=== PATIENT | male | born 1955 | race American Indian/Alaskan Native ===

== ENCOUNTER 2021-04-30 13:50 | Emergency (ER) | payer MEDICARE ==
[2021-04-30 14:26] VITALS: BP 110/72
--- NOTE | 2021-04-30 14:40 | Emergency Department Report ---
ED Abdominal Pain HPI - General Chief Complaint: Abdominal Pain Stated Complaint: URINARY RETENTION Time Seen by Provider: 04/30/21 14:39 Source: patient Mode of arrival: Ambulatory Limitations: No Limitations - History of Present Illness Initial Comments: Patient presents because he states he cannot pee. He started this this morning. He got up this morning and felt as though he needed to urinate. He has been having a difficult time. He states he just feels like he cannot urinate. He has had no flank pain. There is no back pain. He does report having some suprapubic discomfort. He was recently seen here and diagnosed with a kidney stone. He was told that the stone was moving. He does not know if this is because the stone is causing a blockage or not. He has never had this happen before. - Related Data Home Medications Medication Instructions Recorded Confirmed Last Taken Aspirin [[place] Aspirin EC] 81 mg PO DAILY 04/21/21 04/21/21 Unknown Tamsulosin [Flomax] 0.4 mg PO QDAY 04/21/21 04/21/21 Unknown Previous Rx's Medication Instructions Recorded Last Taken Type Phenazopyridine [Pyridium] 200 mg PO TID #9 tab 04/30/21 Unknown Rx Allergies Allergy/AdvReac Type Severity Reaction Status Date / Time No Known Allergies Allergy Verified 04/21/21 14:28 ED Review of Systems ROS: Stated complaint: URINARY RETENTION Other details as noted in HPI Comment: All other systems reviewed and negative Constitutional: denies: fever Eyes: denies: eye pain ENT: denies: throat pain Respiratory: denies: cough Cardiovascular: denies: chest pain Endocrine: denies: unexplained weight loss Gastrointestinal: as per HPI Genitourinary: as per HPI Musculoskeletal: denies: back pain Skin: denies: rash Neurological: denies: headache Hematological/Lymphatic: denies: easy bruising ED Past Medical Hx - Past Medical History Previous Medical History?: Yes Hx Kidney Stones: Yes Hx HIV: No - Surgical History Past Surgical History?: No - Family History Family history: no significant - Social History Smoking Status: Never Smoker - Medications Home Medications: Home Medications Medication Instructions Recorded Confirmed Last Taken Type Aspirin [[place] Aspirin EC] 81 mg PO DAILY 04/21/21 04/21/21 Unknown History Tamsulosin [Flomax] 0.4 mg PO QDAY 04/21/21 04/21/21 Unknown History Phenazopyridine [Pyridium] 200 mg PO TID #9 tab 04/30/21 Unknown Rx ED Physical Exam - General Limitations: No Limitations, Other (Pulse ox noted and normal) General appearance: alert, in no apparent distress, other (Uncomfortable) - Head Head exam: Present: atraumatic, normocephalic - Eye Eye exam: Present: normal appearance, EOMI - ENT ENT exam: Present: normal orophraynx, normal external ear exam - Neck Neck exam: Present: normal inspection. Absent: meningismus - Respiratory Respiratory exam: Present: normal lung sounds bilaterally. Absent: respiratory distress - Cardiovascular Cardiovascular Exam: Present: regular rate, normal rhythm - GI/Abdominal GI/Abdominal exam: Present: soft. Absent: distended - Extremities Exam Extremities exam: Present: normal capillary refill - Back Exam Back exam: Absent: CVA tenderness (R), CVA tenderness (L) - Neurological Exam Neurological exam: Present: alert, oriented X3, CN II-XII intact, normal gait. Absent: motor sensory deficit - Psychiatric Psychiatric exam: Present: normal affect, normal mood - Skin Skin exam: Present: warm, dry ED Course Vital Signs 04/30/21 14:23 Temperature 98.0 F Pulse Rate 54 L Respiratory 15 Rate Blood Pressure 110/72 O2 Sat by Pulse 100 Oximetry - Reevaluation(s) Reevaluation #1: 04/30/21 14:39 Bladder scan ordered Reevaluation #2: 04/30/21 15:25 Bladder scan was noted. He is not in urinary retention. UA has been ordered. Reevaluation #3: 04/30/21 16:38 Bladder scan and UA were noted. Patient was discharged. ED Medical Decision Making - Medical Decision Making Patient has urinary urgency related to passage of a ureteral stone. He does not have urinary retention. There is no evidence of urinary tract infection. Patient does not appear to have pyelonephritis. He does not appear to be septic or toxic. He was treated symptomatically at this time. There is no evidence of pyelonephritis. I am not concerned for high-grade obstruction. Critical Care Time: No Critical care attestation.: If time is entered above; I have spent that time in minutes in the direct care of this critically ill patient, excluding procedure time. ED Disposition Clinical Impression: Urinary urgency Disposition: HOME / SELF CARE / HOMELESS Is pt being admited?: No Condition: Stable Additional Instructions: Drink plenty water. Strain the urine. Follow-up with urologist. Return for any problems or concerns. Prescriptions: Phenazopyridine [Pyridium] 200 mg PO TID #9 tab
[2021-04-30] MEDS ORDERED: PHENAZOPYRIDINE 200 MG TAB PO ONE (15:24)
[2021-04-30] MEDS ORDERED: TAMSULOSIN 0.4 MG CAP PO ONE (15:24)
[2021-04-30 16:35] LABS: Bacteria,Urine 1+ /HPF (Negative); Bilirubin,Urine NEG (Negative); Blood,Urine LG (Negative); Color,Urine Straw (Yellow); Mucus,Urine FEW /HPF; Protein,Urine <15 mg/dL mg/dL (Negative); Urobilinogen,Urine < 2.0 mg/dL (<2.0)
== END 2021-04-30 16:58 | disposition home or self-care (01) ==
LOC: ED 13:50
DX: R39.15 Urgency of urination (principal); N20.0 Calculus of kidney; Z79.899 Other long term (current) drug therapy
CPT/HCPCS: 51798; 81001; 99283

== ENCOUNTER 2021-05-06 06:48 | Day surgery (SDC) | payer MEDICARE ==
[2021-05-06] MEDS ORDERED: LACTATED RINGERS 1,000 ML ONE (06:57)
--- NOTE | 2021-05-06 07:32 | Anesthesia Consultation ---
Anesthesia Consult and Med Hx - Airway Anesthetic Teeth Evaluation: Good ROM Head & Neck: Adequate Mental/Hyoid Distance: Adequate Mallampati Class: Class II Intubation Access Assessment: Probably Good - Pulmonary Exam CTA: Yes - Cardiac Exam Cardiac Exam: RRR - Pre-Operative Health Status ASA Pre-Surgery Classification: ASA1 Proposed Anesthetic Plan: General - Pulmonary Hx Smoking: No Hx Asthma: No Hx Respiratory Symptoms: No (recent Covid (04/23/21) but asymptomatic ) Hx Sleep Apnea: No (JUAN PRE SCREEN LOW RISK) - Cardiovascular System Hx Hypertension: No Hx Heart Murmur: Yes (As a child) - Central Nervous System Hx Neuromuscular Disorder: Yes (migraines) Hx Psychiatric Problems: No - Gastrointestinal Hx Ulcer: No Hx Gastroesophageal Reflux Disease: No - Endocrine Hx Renal Disease: No Hx Liver Disease: No Hx Non-Insulin Dependent Diabetes: No Hx Thyroid Disease: No - Hematic Hx Anemia: No Hx Sickle Cell Disease: No - Other Systems Hx Alcohol Use: Yes (OCCASSIONALLY) Hx Substance Use: No Hx Cancer: No Hx Obesity: No - Additional Comments Anesthesia Medical History Comments: No hx of anesthetic complications
--- NOTE | 2021-05-06 07:33 | Anesthesia Day of Surgery ---
Anesthesia Day of Surgery - Day of Surgery Patient Examined: Yes Patient H&P Reviewed: Yes Patient is NPO: Yes
[2021-05-06] MEDS ORDERED: ONDANSETRON 4 MG/2 ML INJ ONE (07:35)
[2021-05-06] MEDS ORDERED: LIDOCAINE MPF (2%) 20 MG/1 ML VIAL 5 ML ONE (07:35)
[2021-05-06] MEDS ORDERED: propofoL 200 MG/20 ML VIAL IV ONE (07:35)
[2021-05-06] MEDS ORDERED: fentaNYL 100 MCG/2 ML INJ ONE (07:35)
[2021-05-06] MEDS ORDERED: ceFAZolin/Water 2 GM/20 ML 2 GM/20 ML SYRINGE IV ONE (07:53)
[2021-05-06] MEDS ORDERED: ceFAZolin/Water 2 GM/20 ML 2 GM/20 ML SYRINGE IV NR (08:00)
[2021-05-06] MEDS ORDERED: LACTATED RINGERS 1,000 ML IV SCH (08:30)
[2021-05-06] MEDS ORDERED: ePHEDrine SULFATE 50 MG/1 ML INJ ONE (08:35)
[2021-05-06] MEDS ORDERED: WATER FOR IRRIG STERILE 2000 ML IR ONE (09:12)
--- NOTE | 2021-05-06 09:27 | Post Operative Note ---
Date of procedure: 05/06/21 Pre-op diagnosis: left ureteral stone Post-op diagnosis: same Findings: same Procedure: laser cysto ureteroscopy Anesthesia: SOBIA Surgeon: ALMA DELIA REAGAN Estimated blood loss: none Pathology: list (stone) Specimen disposition: given to patient/family
--- NOTE | 2021-05-06 09:28 | Discharge Summary ---
Short Stay Discharge Plan Activity: other (no straining ) Weight Bearing Status: Full Weight Bearing Diet: low fat, low cholesterol, low salt Special Instructions: other (inc fluids ) Follow up with: ANGELES GAN MD [Primary Care Provider] - 7 Days ALMA DELIA REAGAN MD [Staff Physician] - 7 Days
--- NOTE | 2021-05-06 09:43 | Operative Report ---
DATE OF SURGERY: 05/06/2021 PREOPERATIVE DIAGNOSIS: Left distal ureteral stone. POSTOPERATIVE DIAGNOSIS: Left distal ureteral stone. PROCEDURES: Cystoscopy, left retrograde, left ureteral balloon dilatation, ureteroscopy, laser of a 7 mm stone and extraction of fragments. SURGEON: Andrea Pham MD ANESTHESIA: General. FINDINGS: This is a gentleman with severe intermittent left flank pain, difficulty voiding. He now presents with a distal stone, he is yet to pass it. DESCRIPTION OF PROCEDURE: The patient was brought to the operating room and placed on the operating table. Following induction of anesthesia, placed in the lithotomy position, prepped and draped in the usual sterile fashion. Cystourethroscopy showed swelling around the left orifice. Right was normal. Retrograde showed some narrowing. There were large phleboliths as well. There was narrowing of the distal meatus, so we did a balloon dilatation. Once the balloon dilatation was carried out, ureteroscopy revealed the stone. This was too big to grasp. It was lasered into multiple fragments. The patient tolerated the procedure well. No significant complications. A double-J was left with a string. He was brought to recovery in stable condition. TID: [id number] RECEIPT: [id number] ARVIND/TU
[2021-05-06 10:28] VITALS: BP 136/69
--- NOTE | 2021-05-06 13:02 | Post Anesthesia Evaluation ---
- Post Anesthesia Evaluation Patient Participated: Yes Airway Patent: Yes Stable Respiratory Function: Yes Nausea/Vomiting: No Temp > 96.8F: Yes Pain Manageable: Yes Adequeate Hydration: Yes Anesthesia Complications: No Block Receding Appropriately: Not Applicable Patient on Ventilator: No
--- NOTE | 2021-05-06 15:11 | Fluoroscopy Report ---
FLUOROSCOPY RETROGRADE UROGRAPHY FLUOROSCOPY URETER/NEPHROSTOMY DILATATION LEFT INDICATION: LT URETERAL STONE. COMPARISON: None. IMPRESSION: 46 seconds of fluoroscopy time was provided by radiology during retrograde urography by the urologist. 10 fluoroscopic images are presented. The right retrograde pyelogram is unremarkable. A filling defect consistent with a stone is identified on the left side. Subsequent images demonstra te left ureteroscopy, stone removal and placement of a left ureteral stent. Please correlate with the procedural report by urology. Signer Name: Mani Saavedra Jr, MD Signed: 05/06/2021 3:06 PM Workstation Name: [id number]
== END 2021-05-06 10:50 | disposition home or self-care (01) ==
LOC: OR 06:48
PROVIDERS: ATTEND Urology
DX: N20.1 Calculus of ureter (principal); G43.909 Migraine, unspecified, not intractable, without status migrainosus; Z79.899 Other long term (current) drug therapy; Z98.890 Other specified postprocedural states
CPT/HCPCS: 52356; 74420; 74485; C1726; C1758; C1769; C2617; J0690; J2405; J2704; J3010; J3490; J7120; Q9967